=== PATIENT | female | born 1995 | race Caucasian/White ===

== ENCOUNTER 2019-12-09 13:23 | Outpatient (CLI) | payer BC, SELFPAY | END 2019-12-09 13:24 | disposition home or self-care (01) | PROVIDERS: PCP Family Medicine; Visit Provider Obstetrics & Gynecology | DX: O20.9 Hemorrhage in early pregnancy, unspecified (principal) | CPT/HCPCS: 36415; 85461 ==

== ENCOUNTER 2021-02-01 10:17 | Emergency (ER) | payer BC, SELFPAY ==
--- NOTE | ~2021-02-01 | CT_ITS ---
EXAMINATION: CT abdomen pelvis w con EXAM DATE: 02/01/2021 12:25 INDICATION: RLQ abd pain, nausea . TECHNIQUE: Spiral CT of the abdomen and pelvis was performed following intravenous injection of 100 m L Omnipaque 350. Axial, coronal and sagittal images of the abdomen and pelvis were reviewed. The do se-length product (DLP) for this examination was 600.73 mGy-cm. The exposure was tailored according to patient size (auto mA exposure control), and iterative reconstruction (ASIR) was used as additiona l dose reduction technique. Comparison is made to prior examination from 07/02/2018. FINDINGS: The liver, spleen, adrenal glands and pancreas are unremarkable. Gallbladder is unremarkab le. No biliary obstruction. Portal and splenic veins are patent. Kidneys enhance symmetrically. T here is no hydronephrosis. There is IUD which appears to be centrally located within the endometrium, expected position. There i s deflated appearing somewhat elongated left adnexal region, probably a recently ruptured hemorrhagic cyst given the small to moderate amount of free fluid in the pelvis. Body the appendix is normal in appearance. The tip is within portion of pelvic fluid. The bladder is unremarkable. There is no ret roperitoneal or pelvic lymphadenopathy. The stomach and small bowel are unremarkable. There is expected amount of colonic stool. No free i ntraperitoneal gas. The heart is normal in size. There are no pericardial or pleural effusions. 4 mm right lower lobe granuloma unchanged. There are no osteoblastic or osteolytic lesions identified . IMPRESSION: Small to moderate free pelvic fluid and deflated appearing left ovarian lesion probably r ecently ruptured hemorrhagic cyst, clinical correlation. Reviewed, dictated and finalized at location B. IMPRESSION: Small to moderate free pelvic fluid and deflated appearing left ova krysten lesion probably recently ruptured hemorrhagic cyst, clinical correlation.
--- NOTE | ~2021-02-01 | US_ITS ---
EXAMINATION: US pelvic complete w TV EXAM DATE: 02/01/2021 14:01 INDICATION: Abnormal CT scan. Right-sided pelvic pain. TECHNIQUE: Pelvic transabdominal and transvaginal sonogram was performed. There are multiple graysca le and Doppler images available for interpretation. There is no prior study for comparison. FINDINGS: Uterus measures 9.2 x 6.2 x 4.7 cm, with IUD centrally located inside the endometrial cavi ty. Endometrial stripe measures 6 mm, within normal limits. There is small to moderate free pelvic fluid. Right adnexa: The ovary measures 3.9 x 3.3 x 2.6 cm and is morphologically normal. Ovarian vascular f low confirmed. Left adnexa: The ovary measures 3.4 x 2.5 x 2.8 cm and is morphologically normal. Ovarian vascular fl ow confirmed. IMPRESSION: 1. Unremarkable pelvic ultrasound exam. Reviewed, dictated and finalized at location B.
[2021-02-01 10:41] VITALS: BP 126/62; PULSE 86; RESP 18; TEMP 36.6; O2SAT 96
[2021-02-01 11:41] LABS: Basophils Percent Auto 0.3 % (0.2-1.2); Eosinophils Absolute Auto 0.2 K/mm3 (0-0.3); Eosinophils Percent Auto 2.1 % (0-4.4); Hematocrit 40.8 % (37.0-47.0); Hemoglobin 13.3 g/dL (12.0-15.0); Immature Granulocyte Absolute 0.04 K/mm3 (0.00-0.031); Immature Granulocyte Percent A 0.4 % (0-0.5); Lymphocytes Absolute Auto 1.69 K/mm3 (0.9-3.2); Lymphocytes Percent Auto 18.7 % (18.3-44.2); Mean Corpuscular HGB Conc 32.6 g/dl (32-36); Mean Corpuscular Hemoglobin 28.1 pg (26-34); Mean Corpuscular Volume 86.1 fl (80-100); Mean Platelet Volume 12.6 fl (7.4-10.4); Monocytes Absolute Auto 0.5 K/mm3 (0.1-0.6); Neutrophils Absolute Auto 6.6 K/mm3 (1.3-6.7); Neutrophils Percent Auto 72.5 % (45.5-73.1); Platelet Count Result 184 k/mm3 (150-375); Red Blood Count 4.74 M/mm3 (4.2-5.4); Red Cell Distribution Width 15.7 % (11.5-14.5)
[2021-02-01 11:53] LABS: Add Urine Microscopic? YES; Appearance Urine Clear (Clear); Bilirubin Urine Negative (Negative); Blood Urine Negative (Negative); Color Urine Yellow (Yellow); Glucose Urine UA Negative (Negative); Ketones Urine Negative (Negative); Leukocyte Esterase Ur Trace LEU/UL (Negative); Mucus Urine Rare /lpf; Nitrate Urine Negative (Negative); Protein Urine Negative (Negative); RBC Urine 0-2 /hpf (0-2); Specific Grav Ur 1.017 (1.001-1.035); Squamous Epithelial Cell Urine Many /hpf (Few); Urobilinogen Urine Negative mg/dL (<2.0); WBC Urine 0-3 /hpf
[2021-02-01 11:56] LABS: Alanine Aminotransferase 12 U/L (4-35); Albumin Level 4.3 g/dL (3.5-5.1); Alkaline Phosphatase 97 U/L (38-126); Anion Gap 9 mmol/L (8-16); Aspartate Amino Transferase 17 U/L (14-36); Bilirubin,Total 0.9 mg/dL (0.2-1.3); Blood Urea Nitrogen 14 mg/dL (7-17); Calcium 9.2 mg/dL (8.4-10.2); Carbon Dioxide 24 mmol/L (22-30); Chloride 106 mmol/L (98-107); Estimated CRCL calculation 124 ml/min; Estimated Glomerular Filt Rate > 60; Glucose 88 mg/dL (65-110); Lipase 53 U/L (23-300); Potassium 4.3 mmol/L (3.4-5.0); Sodium 139 mmol/L (137-145)
[2021-02-01] MEDS: SODIUM CHLORIDE 0.9% IV 1,000 ML 999 ML IV CONT (12:36)
[2021-02-01] MEDS: MORPHINE SULFATE (*CRX) 4 MG/ML INJ IV PUSH (12:38)
[2021-02-01] MEDS: ONDANSETRON INJ 4 MG/2 ML VIAL IV PUSH (12:38)
--- NOTE | 2021-02-01 12:59 | ED.ABDPAIN ---
HPI - Abdominal Pain General Chief Complaint: Abdominal Pain <Candelaria Paz PA-C - Last Filed: 02/01/21 15:29> Stated Complaint: abdominal pain <Candelaria Paz PA-C - Last Filed: 02/01/21 15:29> Time Seen by Provider: 02/01/21 11:03 <Candelaria Paz PA-C - Last Filed: 02/01/21 15:29> Source: patient <DUSTIN Butler Last Filed: 02/01/21 15:29> Mode of arrival: ambulatory <DUSTIN Butler Last Filed: 02/01/21 15:29> Limitations: no limitations <Candelaria Paz PA-C - Last Filed: 02/01/21 15:29> History of Present Illness HPI narrative: This is a 25 year old female that presents to the ER for lower abdominal pain present since yesterday. Reports the pain is in the mid abdomen, but is starting to localize to the RLQ. Associated with nausea. Denies fever, vomiting, or dysuria. <Candelaria Paz PA-C - Last Filed: 02/01/21 15:29> Related Data Allergies/Adverse Reactions: Allergies Allergy/AdvReac Type Severity Reaction Status Date / Time ceftriaxone Allergy Unknown Skin Verified 07/11/17 21:20 Reaction No Known Allergies Allergy Verified 06/07/18 08:06 <Candelaria Paz PA-C - Last Filed: 02/01/21 15:29> Review of Systems Review of Systems: CONSTITUTIONAL: Denies fever GASTROINTESTINAL: Reports abdominal pain, nausea, diarrhea. Denies vomiting GENITOURINARY: Denies dysuria or hematuria. <Candelaria Paz PA-C - Last Filed: 02/01/21 15:29> All systems reviewed & are unremarkable except as noted in HPI and below <Candelaria Paz PA-C - Last Filed: 02/01/21 15:29> [facility] Family History Family History: Family History (Updated 12/23/17 @ 10:01 by DOCTOR UNKNOWN) Mother Depression Father Hypertension Other Diabetes mellitus Malignant neoplasm of prostate <DUSTIN Butler Last Filed: 02/01/21 15:29> Social History Social History: Social History Smoking status: Never smoker Alcohol intake: current <Candelaria Paz PA-C - Last Filed: 02/01/21 15:29> Exam Narrative: GENERAL: Well-appearing, well-nourished, and in no acute distress. HEAD: Normocephalic, atraumatic. EYES: EOMI. CHEST: Clear to auscultation. No respiratory distress. No wheezes rales or rhonchi HEART: Regular rate and rhythm. No murmur heard. Normal peripheral pulses. ABDOMEN: Soft, nondistended, normal active bowel sounds. Tender to palpation throughout the lower abdomen, without guarding. No CVA tenderness EXTREMITIES: Normal range of motion. No edema. SKIN: Warm, dry, no rash. NEURO: No focal deficits. Alert and oriented x3. PSYCH: Normal mood and affect <Candelaria Paz PA-C - Last Filed: 02/01/21 15:29> Course Consultations Consultation #1: Spoke with her gynecologists office about workup. <Candelaria Paz PA-C - Last Filed: 02/01/21 15:29> Date: 02/01/21 <Candelaria Paz PA-C - Last Filed: 02/01/21 15:29> Time: 15:00 <Candelaria Paz PA-C - Last Filed: 02/01/21 15:29> Vital Signs Vital signs: Vital Signs Temperature 97.8 F 02/01/21 10:41 Pulse Rate 86 02/01/21 10:41 Respiratory Rate 18 02/01/21 10:41 Blood Pressure 126/62 02/01/21 10:41 Pulse Oximetry 96 02/01/21 10:41 Temperature 97.8 F 02/01/21 10:41 Pulse Rate 86 02/01/21 14:29 Respiratory Rate 17 02/01/21 14:29 Blood Pressure 135/73 02/01/21 14:29 Pulse Oximetry 99 02/01/21 14:29 <Candelaria Paz PA-C - Last Filed: 02/01/21 15:29> Vital Signs Temperature 97.8 F 02/01/21 10:41 Pulse Rate 86 02/01/21 10:41 Respiratory Rate 18 02/01/21 10:41 Blood Pressure 126/62 02/01/21 10:41 Pulse Oximetry 96 02/01/21 10:41 Temperature 97.8 F 02/01/21 10:41 Pulse Rate 86 02/01/21 14:29 Respiratory Rate 17 02/01/21 14:29 Blood Pressure 135/73 02/01/21 14:29 Pulse Oximetry 99 02/01/21 14:29 <Rocio Cloud MD - Last Filed: 02/01/21 18:26> MDM - Abdominal Pain M
[2021-02-01 14:29] VITALS: BP 135/73; PULSE 86; RESP 17; O2SAT 99
== END 2021-02-01 15:35 | disposition home or self-care (01) ==
PROVIDERS: Emergency Provider General Practice; PCP Family Medicine
DX: N83.202 Unspecified ovarian cyst, left side (principal)
CPT/HCPCS: 36415; 74177; 76830; 76856; 80053; 81001; 81025; 83690; 85025; 96361; 96374; 96375; 99284; J0131; J2270; J2405; J7030; Q9967

== ENCOUNTER 2022-08-16 08:39 | Outpatient (RCR) | payer BC, SELFPAY ==
[2022-08-16] MEDS: RHO(D) IMMUNE GLOBULIN 300 MCG/2 ML SYRINGE IM (13:02)
== END 2022-08-16 09:00 | disposition home or self-care (01) ==
LOC: ANHLAB 08:39
PROVIDERS: PCP Family Medicine; Visit Provider Obstetrics & Gynecology
DX: Z29.13 Encounter for prophylactic Rho(D) immune globulin (principal); O20.0 Threatened abortion; Z3A.00 Weeks of gestation of pregnancy not specified
CPT/HCPCS: 36415; 84702; 85461; 86850; 86900; 86901; 90384; 96372; J2790

== ENCOUNTER 2022-08-26 16:47 | Outpatient (CLI) | payer BC, SELFPAY | END 2022-08-26 16:48 | disposition home or self-care (01) | LOC: ANHLAB 16:50 | PROVIDERS: PCP Family Medicine; Visit Provider Advanced Practice Midwife | DX: O20.0 Threatened abortion (principal); Z3A.00 Weeks of gestation of pregnancy not specified | CPT/HCPCS: 36415; 84702 ==

== ENCOUNTER 2022-08-28 17:29 | Outpatient (RCR) | payer BC, SELFPAY | END 2022-11-15 23:59 | disposition home or self-care (01) | LOC: ANHLAB 17:29 | PROVIDERS: PCP Family Medicine; Visit Provider Obstetrics & Gynecology | DX: O20.0 Threatened abortion (principal); Z3A.00 Weeks of gestation of pregnancy not specified | CPT/HCPCS: 36415; 84702; 85461; 86850; 86880; 86900; 86901 ==

== ENCOUNTER 2023-01-29 08:31 | Outpatient (CLI) | payer BC, SELFPAY ==
[2023-01-29 09:57] LABS: Hematocrit 32.6 % (37.0-47.0); Hemoglobin 10.6 g/dL (12.0-15.0)
[2023-01-29 10:10] LABS: Glucose 1 Hour PP 50gm Dose 146 mg/dL
[2023-01-29 11:03] LABS: HIV 1/2 Ab P24 Ag Result Negative (Negative)
[2023-01-30] MEDS: RHO(D) IMMUNE GLOBULIN 300 MCG/2 ML SYRINGE IM (07:29)
== END 2023-01-29 08:32 | disposition home or self-care (01) ==
PROVIDERS: PCP Family Medicine; Visit Provider Advanced Practice Midwife
DX: Z36.89 Encounter for other specified antenatal screening (principal); O36.0130 Maternal care for anti-D [Rh] antibodies, third trimester, not applicable or unspecified; Z3A.00 Weeks of gestation of pregnancy not specified
CPT/HCPCS: 36415; 82947; 85014; 85018; 85461; 86703; 86850; 86900; 86901; 90384; 96372; G0432; J2790

== ENCOUNTER 2023-04-01 15:20 | Observation (INO) | payer BC, SELFPAY ==
[2023-04-01] VITALS (29 sets, daily range): BP systolic 109; BP diastolic 72; PULSE 95–125; TEMP 36.6; O2SAT 99–100
[2023-04-01] MEDS: LACTATED RINGERS 1,000 ML 999 ML IV CONT (16:33)
[2023-04-01] MEDS: ZOLPIDEM TARTRATE (*CRX) 5 MG TABLET PO (21:24)
--- NOTE | 2023-04-02 19:05 | PM.OBTRLD ---
OB - Triage/Final Diagnosis Visit Information Date of evaluation: 04/01/23 Reason for evaluation: threatened labor Comments/Additional reasons for admission: I have assessed the risk for this patient, Milla Ibanez, and determined that she would benefit from observation care. Evaluation Vital signs: Vital Signs - 24 hr 04/01/23 20:16 04/01/23 20:18 04/01/23 20:21 Pulse Rate 117 H Blood Pressure 109/72 Pulse Oximetry 100 99 04/01/23 20:26 04/01/23 20:31 04/01/23 20:36 Pulse Rate Blood Pressure Pulse Oximetry 100 100 100 04/01/23 20:41 04/01/23 20:46 04/01/23 20:51 Pulse Rate Blood Pressure Pulse Oximetry 99 100 100
== END 2023-04-01 21:39 | disposition home or self-care (01) ==
PROVIDERS: Admitting Provider Obstetrics & Gynecology; PCP Family Medicine; Visit Provider Obstetrics & Gynecology
DX: O47.9 False labor, unspecified (principal); Z3A.00 Weeks of gestation of pregnancy not specified
CPT/HCPCS: A9270; G0378; G0379; J7120

== ENCOUNTER 2023-04-07 03:58 | Observation (INO) | payer BC, SELFPAY ==
--- NOTE | 2023-04-08 13:33 | PM.OBTRLD ---
OB - Triage/Final Diagnosis Visit Information Date of evaluation: 04/07/23 Reason for evaluation: threatened labor Comments/Additional reasons for admission: I have assessed the risk for this patient, Milla Ibanez, and determined that she would benefit from observation care.
== END 2023-04-07 05:53 | disposition home or self-care (01) ==
PROVIDERS: Admitting Provider Obstetrics & Gynecology; PCP Family Medicine; Visit Provider Obstetrics & Gynecology
DX: O47.1 False labor at or after 37 completed weeks of gestation (principal); Z3A.38 38 weeks gestation of pregnancy
CPT/HCPCS: G0378; G0379

== ENCOUNTER 2023-04-16 05:04 | Inpatient (IN) | payer BC, SELFPAY ==
--- NOTE | 2023-04-01 15:33 | PC.NURSE ---
, edc 04/20 arrives to unit with c/o ctx since 04/01 at 0200 progressing to ctx aprox 5-6 minutes apart prior to arrival to unit. Pt reports good movement, pain level of 5, denies leaking of fluid, bleeding, or any health conditions with this .
[2023-04-16] VITALS (64 sets, daily range): BP systolic 101–126; BP diastolic 56–80; PULSE 96–138; RESP 16–18; TEMP 36.5–36.9; O2SAT 97–100; BMI 31.0
--- NOTE | 2023-04-16 05:04 | LDADM ---
This patient, Milla Ibanez, was admitted to Labor/Delivery/Recovery 104 on 04/16/23 at 05:04. Plans for labor, pain management and were discussed with patient. Patient/family oriented to hospital policies and general routines including ID bracelet, bed and alarms, visiting hours, pain management, procedures, bathroom and other care routines, personal items, smoking policy, room service/diet and guest tray routines, security routines, and visiting hours. Patient/Family are encouraged to report perceived risks to care and to ask questions if they do not understand what they are told or what they should do. See OBIX for further documentation.
[2023-04-16 05:59] LABS: Basophils Percent Auto 0.2 % (0.2-1.2); Eosinophils Absolute Auto 0.1 K/mm3 (0-0.3); Eosinophils Percent Auto 0.6 % (0-4.4); Hematocrit 30.1 % (37.0-47.0); Hemoglobin 9.4 g/dL (12.0-15.0); Immature Granulocyte Percent A 0.7 % (0-0.5); Immature Platelet Fraction Pct 17.8 % (0.9-11.2); Mean Corpuscular HGB Conc 31.2 g/dl (32-36); Mean Corpuscular Hemoglobin 24.9 pg (26-34); Mean Corpuscular Volume 79.8 fl (80-100); Monocytes Absolute Auto 0.8 K/mm3 (0.1-0.6); Monocytes Percent Auto 5.3 % (2.6-8.5); Neutrophils Absolute Auto 12.2 K/mm3 (1.3-6.7); Neutrophils Percent Auto 84.2 % (45.5-73.1); Platelet Count Result 211 k/mm3 (150-375); Red Blood Count 3.77 M/mm3 (4.2-5.4); Red Cell Distribution Width 15.6 % (11.5-14.5); White Blood Count 14.4 K/mm3 (4.5-10.0)
[2023-04-16] MEDS: LACTATED RINGERS 1,000 ML 125 ML IV CONT (06:07)
[2023-04-16] MEDS: OXYTOCIN 30 UNITS/NS 500 ML 30 UNITS/500 ML BAG IV CONT (06:08)
[2023-04-16] MEDS: AMPICILLIN 2 GM/NS 100 ML 2 GM/100 ML BAG IVPB (06:08)
[2023-04-16 06:48] LABS: HIV 1/2 Ab P24 Ag Result Negative (Negative)
--- NOTE | 2023-04-16 07:17 | WPDANESEPP ---
Anes - Eval Pre Procedure Procedure: labor epidural Date/Time: 04/16/23 07:17 Surgeon: Shae Preop Diagnosis: labor pain Pre Op Diagnosis: IOL Patient Data Age: 28 Gender: F Height: 1.63 m Weight: 82 kg Last Vital Signs Pulse 114 H 04/16/23 07:16 BP 113/75 04/16/23 07:16 O2 Del Method Room Air 04/16/23 06:12 Allergies Allergy/AdvReac Type Severity Reaction Status Date / Time No Known Allergies Allergy Verified 04/09/23 14:39 Home Medications Medication Instructions Recorded Confirmed Type acyclovir 400 mg tablet 500 mg PO DAILY 03/26/23 04/16/23 History vits no.126-ferrous fum 1 tablet DAILY 03/26/23 04/16/23 History 28 mg iron-folic acid 800 mcg tablet (Classic ) Laboratory Tests 04/16/23 05:51 WBC 14.4 H K/mm3 (4.5-10.0) RBC 3.77 L M/mm3 (4.2-5.4) Hgb 9.4 L g/dL (12.0-15.0) Hct 30.1 L % (37.0-47.0) MCV 79.8 L fl (80-100) MCH 24.9 L pg (26-34) MCHC 31.2 L g/dl (32-36) RDW 15.6 H % (11.5-14.5) Plt Count 211 k/mm3 (150-375) MPV TNP Immature Gran % (Auto) 0.7 H % (0-0.5) Neut % (Auto) 84.2 H % (45.5-73.1) Lymph % (Auto) 9.0 L % (18.3-44.2) [place] % (Auto) 5.3 % (2.6-8.5) Eos % (Auto) 0.6 % (0-4.4) Baso % (Auto) 0.2 % (0.2-1.2) Lymph # (Auto) 1.30 K/mm3 (0.9-3.2) [place] # (Auto) 0.8 H K/mm3 (0.1-0.6) Eos # (Auto) 0.1 K/mm3 (0-0.3) Baso # (Auto) 0.0 K/mm3 (0.0-0.1) Abs Immat Gran (auto) 0.10 H K/mm3 (0.00-0.031) Absolute Neuts (auto) 12.2 H K/mm3 (1.3-6.7) Absolute Nucleated RBC 0.0 K/mm3 (0.0-0.012) Nucleated RBC % 0.0 % (0.0-0.2) % Immature Plt Fraction 17.8 H % (0.9-11.2) RPR Pending HIV 1&2 Ab/P24 Ag 4thGn Negative (Negative) Patient hx anesthesia problems: none Family hx anesthesia problems: none Results Review: All pre-operative results and documents have been reviewed as part of the pre-operative evaluation. [facility] Past Medical History Medical History GERD without esophagitis Giardial colitis Hx of cholecystitis Hx of concussion Hx of ovarian cyst Abdomen/Pelvis CT 02/01/21 12:27 IMPRESSION: Small to moderate free pelvic fluid and deflated appearing left ovarian lesion probably recently ruptured hemorrhagic cyst, clinical correlation 02.01.21 Pelvic u/s: normal. no cyst Migraine with aura, not intractable, without status migrainosus Pes anserine bursitis Family History Family History Mother Depression Father Hypertension Father Hypertension Other Diabetes mellitus Malignant neoplasm of prostate Social History Social History Smoking status: Never smoker Second hand tobacco smoke exposure: No Alcohol intake: current Substance use type: does not use Lack of Transportation: No Lack of Food: Never True Current Housing: I Have Housing Concerned About Future Housing: No Difficulty Paying Gas/Electric Bills: No Difficulty Paying for Meds: No Currently Unemployed: No Education: Associate Degree Difficulty w/ Childcare or Family Care: No Living arrangements: with family Spiritual care concerns: No Exam Day of Procedure 04/16/23 07:17 Patient weight: overweight Heart: regular rate and rhythm Lungs: normal air movement Airway: Mallampati scale class II Neurological: alert and oriented
--- NOTE | 2023-04-16 08:58 | P.PCNOB_ITS ---
OB - Delivery Note Procedure Delivery date: 04/16/23 Procedure: Induction method: AROM and Per Pitocin Protocol Delivery monitor: External Uterine Route of delivery: Episiotomy description: None Laceration Description: Perineal - 1st Degree Delivery repair: vicryl Specimen: No Quantitative Blood Loss (ml): 100 Anesthesia type: Epidural Disposition: Floor [place] Baby Date of : 04/16/23 Time of : 08:47 Weeks of gestation at delivery: 39 Infant gender: Male presentation: vertex position: Left Occiput Anterior Placenta delivery description: Spontaneous Cord Vessel Description: 3 Vessels, Nuchal Cord, Tight (reduced), Clamped/Cut and Delayed Cord Clamping score one minute: 9 score five minutes: 10 Narrative: mother and baby skin to skin in stable condition
[2023-04-16] MEDS: OXYTOCIN 30 UNITS/NS 500 ML 30 UNITS/500 ML BAG 125 UNITS IV CONT (09:24)
[2023-04-16 10:43] LABS: Rapid Plasma Reagin Non-Reactive (NonReactive)
--- NOTE | 2023-04-16 11:40 | OBPPTRN ---
Patient transferred to post room #285 via wheelchair. Support person present. Oriented to unit, room, information board, rooming in, admission packet and security measures. Patient verbalizes understanding.
[2023-04-16] MEDS: DOCUSATE SODIUM 100 MG CAPSULE PO (15:59)
[2023-04-16] MEDS: LANOLIN (LANSINOH) 7.5 GM CREAM 1 APPLIC TOPICAL (15:59)
[2023-04-16] MEDS: POLYSACCHARIDE IRON COMPLEX 150 MG CAPSULE PO (16:00)
[2023-04-16] MEDS: IBUPROFEN 600 MG TABLET PO (16:42)
[2023-04-17] MEDS: IBUPROFEN 600 MG TABLET PO ×2 (04:18→17:42)
[2023-04-17 04:40] VITALS: BP 119/85; PULSE 87; RESP 16; RESP 18; TEMP 36.4; O2SAT 100
[2023-04-17 05:01] LABS: Hematocrit 30.1 % (37.0-47.0); Hemoglobin 9.3 g/dL (12.0-15.0)
--- NOTE | 2023-04-17 05:20 | P.PNOB_ITS ---
OB - PN: Subj Subjective Date/time seen: 04/17/23 05:20 Interval history: pp day 1 well no complaints would like d/c home OB - PN: Obj Data Labs 04/17/23 04:08 Labs: Laboratory Results - last 24 hr 04/16/23 04/16/23 04/17/23 05:51 08:32 04:08 WBC 14.4 H RBC 3.77 L Hgb 9.4 L 9.3 L Hct 30.1 L 30.1 L MCV 79.8 L MCH 24.9 L MCHC 31.2 L RDW 15.6 H Plt Count 211 MPV TNP Immature Gran % (Auto) 0.7 H Neut % (Auto) 84.2 H Lymph % (Auto) 9.0 L [place] % (Auto) 5.3 Eos % (Auto) 0.6 Baso % (Auto) 0.2 Lymph # (Auto) 1.30 [place] # (Auto) 0.8 H Eos # (Auto) 0.1 Baso # (Auto) 0.0 Abs Immat Gran (auto) 0.10 H Absolute Neuts (auto) 12.2 H Absolute Nucleated RBC 0.0 Nucleated RBC % 0.0 % Immature Plt Fraction 17.8 H RPR Non-reactive HIV 1&2 Ab/P24 Ag 4thGn Negative Blood Type O Negative Antibody Screen Positive Antibody Identification Inconclusive Antigen Identification Cancelled SAE, IgG Interpret Not Performed SAE, Poly Interpret Negative SAE, Complement Interp Not Performed OB - PN A/P Plan day: 1 Plan: routine care and discharge home Time Spent With Patient Time: Total time spent is greater than 50% in coordination of care (as documented) at patient's floor/unit and/or counseling patient: Review of Systems Review of Systems: All systems reviewed & are unremarkable except as noted in HPI and below Exam Const: General: cooperative and healthy appearing Chest: Chest palpation & inspection: normal inspection of the chest Resp: Effort & Inspection: normal respiratory effort Cardio: Rate: regular rate GI: Other: soft Skin: General skin exam: normal color Neuro: General: patient oriented x3 Extrem: Right lower extremity: normal to inspection Left lower extremity: normal to inspection
--- NOTE | 2023-04-17 05:24 | P.DS_ITS ---
DS: Admitting Diagnosis Discharge Date 04/17/23 Admitting Diagnosis IOL DS: Discharge Diagnosis Discharge Diagnosis (1) Vaginal delivery: Code(s): O80 - Encounter for full-term uncomplicated delivery Status: Acute OB - DS: Summary OB Procedures : None OB Procedures Intrapartum: Spontaneous Vag Delivery OB Procedures: : None Time Spent with Patient Time attestation: Total time spent providing and/or coordinating discharge services: DS: Data Data Completed and Pending Labs on day of discharge: Labs from last 24 hours 04/17/23 04/16/23 04/16/23 04:08 08:32 05:51 WBC 14.4 H RBC 3.77 L Hgb 9.3 L 9.4 L Hct 30.1 L 30.1 L MCV 79.8 L MCH 24.9 L MCHC 31.2 L RDW 15.6 H Plt Count 211 MPV TNP Immature Gran % (Auto) 0.7 H Neut % (Auto) 84.2 H Lymph % (Auto) 9.0 L [place] % (Auto) 5.3 Eos % (Auto) 0.6 Baso % (Auto) 0.2 Lymph # (Auto) 1.30 [place] # (Auto) 0.8 H Eos # (Auto) 0.1 Baso # (Auto) 0.0 Abs Immat Gran (auto) 0.10 H Absolute Neuts (auto) 12.2 H Absolute Nucleated RBC 0.0 Nucleated RBC % 0.0 % Immature Plt Fraction 17.8 H RPR Non-reactive HIV 1&2 Ab/P24 Ag 4thGn Negative Blood Type O Negative Antibody Screen Positive Antibody Identification Inconclusive Antigen Identification Cancelled SAE, IgG Interpret Not Performed SAE, Poly Interpret Negative SAE, Complement Interp Not Performed Discharge Plan Discharge Attending physician on discharge: Coni Kaufman Discharging Clinician: Pat Mackey Patient Disposition: Home, Self-Care Activity: pelvic rest Diet: regular Patient Instructions: Antibiotic Form Stand Alone Forms: General Discharge Information Follow-up/Referrals: Pat Mackey CNM [Certified Nurse Urgent Care Nurse Practitioner] - 4 Weeks Discharge Medications: New ibuprofen 600 mg Tablet 600 mg PO Q6H PRN (Reason: Cramping) Qty: 30 0RF Continued Classic 28 mg iron- 800 mcg Tablet 1 tablet DAILY Discontinued acyclovir 400 mg Tablet 500 mg PO DAILY Date of admission: 04/16/23 05:04 Primary Care Provider: Ana Maria Woodard Admitting Provider: Coni Kaufman Attending physician on admission: Coni Kaufman Condition: Stable
[2023-04-17 08:00] VITALS: PULSE 87; RESP 16; O2SAT 100
[2023-04-17 08:40] VITALS: BP 110/75; PULSE 87; RESP 16; TEMP 36.5; O2SAT 100
[2023-04-17] MEDS: MULTIVIT/MIN/PREN/FOL AC/IRON TABLET 1 TAB PO (08:54)
[2023-04-17] MEDS: DOCUSATE SODIUM 100 MG CAPSULE PO ×2 (08:55→17:42)
[2023-04-17] MEDS: POLYSACCHARIDE IRON COMPLEX 150 MG CAPSULE PO ×2 (08:55→17:42)
--- NOTE | 2023-04-17 16:17 | PC.NURSE ---
[id number] Introductions were made, then consulted with patient to assess needs related to . Mother led the conversation with her?plans to feed?her infant and the?experience so far. Mother verbalizes she is able to independently latch with appropriate positioning/alignment. She denies any nipple discomfort and is responsively . is currently meeting outcomes for weight, output, jaundice and feeding frequencies of 8-12 times in 24 hours. Mother declines any additional assistance/education at this time. Mother is encouraged to call for assistance if her infant doesn?t latch or there is discomfort with latching. Mother voiced understanding of information shared, resource of LC's name on the communication board to call for assistance and the mom/baby guide for an additional resource. Reported to the primary RN.
[2023-04-17 17:43] VITALS: BP 122/82; PULSE 85; RESP 16; TEMP 36.7; O2SAT 98
[2023-04-17 20:35] VITALS: BP 125/77; PULSE 77; RESP 16; TEMP 36.1; O2SAT 99
--- NOTE | 2023-04-18 07:44 | PM.OBPNVD ---
OB - PN: Subj Subjective Date/time seen: 04/18/23 07:44 Interval history: pp day 2 well no complaints would like d/c home OB - PN: Obj Data Labs 04/17/23 04:08 OB - PN A/P Plan day: 2 Plan: routine care and discharge home Time Spent With Patient Time: Total time spent is greater than 50% in coordination of care (as documented) at patient's floor/unit and/or counseling patient: Review of Systems Review of Systems: All systems reviewed & are unremarkable except as noted in HPI and below Exam Const: General: cooperative, healthy appearing and comfortable Resp: Effort & Inspection: normal respiratory effort Cardio: Rate: regular rate Rhythm: regular rhythm GI: Other: soft
--- NOTE | 2023-04-18 07:45 | PM.OBDSVD ---
DS: Admitting Diagnosis Discharge Date 04/18/23 Admitting Diagnosis IOL OB - DS: Summary OB Procedures : None OB Procedures Intrapartum: Spontaneous Vag Delivery OB Procedures: : None Time Spent with Patient Time attestation: Total time spent providing and/or coordinating discharge services: Discharge Plan Discharge Attending physician on discharge: Coni Kaufman Discharging Clinician: Pat Mackey Patient Disposition: Home, Self-Care Activity: pelvic rest Diet: regular Patient Instructions: Antibiotic Form Stand Alone Forms: General Discharge Information Follow-up/Referrals: Pat Mackey CNM [Certified Nurse High School Chemistry Teacher] - 4 Weeks Discharge Medications: New ibuprofen 600 mg Tablet 600 mg PO Q6H PRN (Reason: Cramping) Qty: 30 0RF Continued Classic 28 mg iron- 800 mcg Tablet 1 tablet DAILY Discontinued acyclovir 400 mg Tablet 500 mg PO DAILY Date of admission: 04/16/23 05:04 Primary Care Provider: Ana Maria Woodard Admitting Provider: Coni Kaufman Attending physician on admission: Coni Kaufman Condition: Stable
[2023-04-18 08:00] VITALS: PULSE 93; RESP 16; O2SAT 100
[2023-04-18 08:30] VITALS: BP 112/73; PULSE 93; RESP 16; TEMP 36.2; O2SAT 100
[2023-04-18] MEDS: POLYSACCHARIDE IRON COMPLEX 150 MG CAPSULE PO (09:09)
[2023-04-18] MEDS: MULTIVIT/MIN/PREN/FOL AC/IRON TABLET 1 TAB PO (09:09)
[2023-04-18] MEDS: DOCUSATE SODIUM 100 MG CAPSULE PO (09:09)
--- NOTE | 2023-04-18 12:14 | PC.NURSE ---
Patient viewed the discharge video Mother & Baby Care, The First Two Weeks . Patient was given the opportunity and encouraged to ask questions. Patient verbalized understanding of information shared and has been given the mother/baby guide for home reference.
[2023-04-19 11:44] VITALS: BP 115/80; PULSE 95; RESP 18; TEMP 37; O2SAT 100
== END 2023-04-18 12:45 | disposition home or self-care (01) | DRG 807 ==
LOC: ANHLDR 05:14 → ANHOB2 11:43
PROVIDERS: Admitting Provider Obstetrics & Gynecology; PCP Family Medicine; Referring Provider Advanced Practice Midwife; Visit Provider Obstetrics & Gynecology
DX: O99.824 Streptococcus B carrier state complicating childbirth (principal); Z37.0 Single live birth; Z3A.39 39 weeks gestation of pregnancy; O70.0 First degree perineal laceration during delivery; O69.81X0 Labor and delivery complicated by cord around neck, without compression, not applicable or unspecified; O62.3 Precipitate labor
CPT/HCPCS: 36415; 85014; 85018; 85025; 85055; 86592; 86703; 86850; 86880; 86900; 86901; 86902; A9270; G0432; J0290; J2590; J2795; J7120

== ENCOUNTER 2024-07-01 12:27 | Emergency (ER) | payer BC, SELFPAY ==
--- NOTE | ~2024-07-01 | XR_ITS ---
XR wrist RT min 3V Ordering provider: Jimmy Castellano APRN History: . Rt wrist pain . Comparison: None. FINDINGS: BONES: No acute fracture or dislocation. No definite scaphoid fracture. JOINT SPACES: Normal. SOFT TISSUES: Normal. IMPRESSION: No acute osseous abnormality right wrist. Reviewed, dictated and finalized at location A. ER DESIGNER
[2024-07-01 12:49] VITALS: BP 137/82; PULSE 84; RESP 16; TEMP 36.6; O2SAT 100
--- NOTE | 2024-07-01 13:05 | ED_ITS ---
HPI - Extremity Injury (Upper) General Chief Complaint: Extremity Injury, Upper Stated Complaint: Wrist Pain Time Seen by Provider: 07/01/24 13:10 Source: patient Mode of arrival: ambulatory Limitations: no limitations History of Present Illness HPI narrative: Milla is a 29-year-old female patient presenting to the clinic today with complaints right radial wrist pain. She reports this has been going on for a couple months but over the last few days is gradually gotten worse. Denies any known injury. Related Data Home Medications ?Medication ?Instructions ?Recorded ?Confirmed ?Last Taken ?Type sertraline 50 mg tablet mg 07/01/24 Unknown History Allergies Allergy/AdvReac Type Severity Reaction Status Date / Time No Known Allergies Allergy Verified 04/09/23 14:39 Review of Systems Review of Systems: Pertinent positives per HPI. Patient denies any fever, chills, rash, headache, visual changes, dizziness, cough, runny nose, sore throat, shortness of breath, chest pain, palpitations, nausea, vomiting, diarrhea, constipation, abdominal pain, or any urinary issues. [facility] Past Medical History Medical History Hx of ovarian cyst Abdomen/Pelvis CT 02/01/21 12:27 IMPRESSION: Small to moderate free pelvic fluid and deflated appearing left ovarian lesion probably recently ruptured hemorrhagic cyst, clinical correlation 7.. Pelvic u/s: normal. no cyst Hx of cholecystitis Hx of concussion GERD without esophagitis Pes anserine bursitis Migraine with aura, not intractable, without status migrainosus Giardial colitis Family History Family History Mother Depression Father Hypertension Father Hypertension Other Diabetes mellitus Malignant neoplasm of prostate Social History Social History Smoking status: Never smoker Second hand tobacco smoke exposure: No Alcohol intake: current Substance use type: does not use Lack of Transportation: No Lack of Food: Never True Current Housing: I Have Housing Concerned About Future Housing: No Difficulty Paying Gas/Electric Bills: No Difficulty Paying for Meds: No Currently Unemployed: No Education: Associate Degree Difficulty w/ Childcare or Family Care: No Living arrangements: with family Spiritual care concerns: No Comments At the time of my signature, I reviewed and agree with the nursing past medical, surgical, social, and family history. There is no relevant family history pert inent to the patient complaint. Exam Narrative: General: Well-developed, well nourished, in no apparent distress Head: Normocephalic, atraumatic. Cardio: Regular rate and rhythm, s1 and s2 normal, no murmur appreciated. Resp: Clear to auscultation bilaterally, no rhonchi, rales, wheezing or rubs. Musculoskeletal: No deformity, tender to palpation over the radial wrist, positive Conor test, negative Tinel's and Phalen's tests, grossly normal range of motion, muscle strength strong and equal, peripheral pulse strong, no edema, no cyanosis, normal gait and station Course Course Emergency Course: Portions of this record may have been created with voice recognition software. Level of Care: Express Care Visit Vital Signs Vital signs: Vital Signs Temperature 36.6 C 07/01/24 12:49 Pulse Rate 84 07/01/24 12:49 Respiratory Rate 16 07/01/24 12:49 Blood Pressure 137/82 07/01/24 12:49 Pulse Oximetry 100 07/01/24 12:49 Temperature 36.6 C 07/01/24 12:49 Pulse Rate 84 07/01/24 12:49 Respiratory Rate 16 07/01/24 12:49 Blood Pressure 137/82 07/01/24 12:49 Pulse Oximetry 100 07/01/24 12:49 Vital signs reviewed MDM - Extremity Injury (Upper) MDM Narrative Medical decision making narrative: At the time of visit patient is resting comfortably on the exam table. Patient appears to be nontoxic. Diagnostics: X-rays negative for any sign of fracture or malalignment. Plan: I suspect patient has de Quervain tenosynovitis. Prescription for Medrol Dosepak was sent to the pharmacy in discussed use of a thumb spica splint. Supportive measures were discussed with the patient and they voiced understanding discharge instructions and agrees to treatment plan. Return precautions reviewed Differential Diagnosis Differential diagnosis: Likely sprain and strain of wrist, fracture of wrist and other (Tendinitis, de Quervain tenosynovitis.) Imaging Data Radiologist's impression: ITS Impressions Wrist X-Ray 07/01/24 13:17 IMPRESSION: No acute osseous abnormality right wrist. Discharge Plan Discharge Clinical Impression: De Quervain's tenosynovitis Patient Disposition: Home, Self-Care Condition: Stable Instructions: Antibiotic Form, De Quervain Disease (ED) Additional Instructions: X-rays negative for any sign of fracture or malalignment. I suspect you have de Quervain tenosynovitis Rest, ice, elevate, and wear thumb spica splint x1 week Take Medrol Dosepak as prescribed Tylenol/motrin for pain as discussed. Follow up with your PCP if symptoms persist more than 1 week. Patient Language: Serbian Prescriptions: New methylprednisolone [Medrol (Campos)] 4 mg tablets,dose pack See Rx Instructions PO .COMPLEX Qty: 21 0RF Rx Instructions: orally per package directions No Action sertraline 50 mg tablet ibuprofen 600 mg Tablet 600 mg PO Q6H PRN (Reason: Cramping) Qty: 30 0RF Follow-up/Referrals: Ana Maria Woodard MD [Primary Care Provider] - Time of Disposition: 13:29 Quality NIHSS Nursing Documentation ED NIHSS nursing documentation: reviewed/agree
== END 2024-07-01 13:32 | disposition home or self-care (01) ==
PROVIDERS: Emergency Provider Nurse Practitioner Family; PCP Family Medicine
DX: M65.4 Radial styloid tenosynovitis [de Quervain] (principal)
CPT/HCPCS: 73110; 99213; G0463